=== PATIENT | male | born 1980 | race Caucasian/White ===

== ENCOUNTER 2017-03-08 08:30 | Emergency (ER) | payer MEDICAID, OTHER ==
[~2017-03-08] VITALS: Ht 177.8 cm; Wt 100.0 kg
[2017-03-08 08:33] VITALS: BP 175/102; PULSE 96; RESP 22; O2SAT 95
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
[2017-03-08 09:22] LABS: BASOPHILS % (AUTO) 0.5 % (0-3); EOSINOPHILS % (AUTO) 2.9 % (0-5); MONOCYTES % (AUTO) 7.8 % (4-12); Mean Corpuscular Hemoglobin 28.9 pg (27.0-35.0); Mean Corpuscular Volume 85.4 fL (81-100); NEUTROPHILS % (AUTO) 65.1 % (40-74); Platelet Count 239 bil/L (150-400)
[2017-03-08 12:14] VITALS: BP 111/73; PULSE 58; RESP 16; O2SAT 94
== END 2017-03-08 14:59 | disposition other institution (70) ==
LOC: SED 08:30
DX: F32.9 Major depressive disorder, single episode, unspecified (principal); R45.851 Suicidal ideations